=== PATIENT | female | born 2005 | race Caucasian/White ===

== ENCOUNTER 2023-10-21 17:46 | Emergency (ER) | payer MEDICAID ==
[~2023-10-21] VITALS: Ht 147.3 cm; Wt 52.0 kg
[2023-10-21] MEDS: ALBUTEROL (0.083%) 2.5MG/3ML NEB HHN SCH (19:41)
[2023-10-21] MEDS: IPRATROPIUM BROMIDE (0.02%) 0.5MG/2.5ML NEB HHN STA (19:41)
[2023-10-21 19:47] VITALS: PULSE 88; RESP 20; O2SAT 97
[2023-10-21] MEDS: PREDNISONE 20MG TABLET PO STA (19:54)
[2023-10-21 20:21] VITALS: PULSE 91; RESP 20; O2SAT 100
[2023-10-21 20:51] VITALS: PULSE 87; RESP 18; O2SAT 100
[2023-10-21 21:54] VITALS: BP 127/78; PULSE 98; RESP 18; TEMP 98.6
[2023-10-21] MEDS ORDERED: ALBU6.7H15 INH (22:10)
[2023-10-21] MEDS ORDERED: P50 MT (22:10)
[2023-10-21] MEDS ORDERED: ALBU2.5V13 NEB (22:10)
== END 2023-10-21 22:15 | disposition home or self-care (01) ==
LOC: ER 17:46
DX: J45.901 Unspecified asthma with (acute) exacerbation (principal)
CPT/HCPCS: 81025; 71045; 94640; 93005; 99285; J7512; Z7610 ×3

== ENCOUNTER 2024-02-18 10:44 | Emergency (ER) | payer MEDICAID, MEDICARE ==
[~2024-02-18] VITALS: Ht 149.9 cm; Wt 55.0 kg
[~2024-02-18 10:44] MED LIST: ALBU2.5V13 NEB; ALBU6.7H15 INH; P50 MT
[2024-02-18 10:59] VITALS: O2SAT 100
[2024-02-18] MEDS: IBUPROFEN 600MG TABLET PO ONE (11:39)
[2024-02-18] MEDS: LIDOCAINE 5% PATCH TOP SCH (11:41)
[2024-02-18 12:03] LABS: CLARITY URINE CLOUDY (CLEAR); COLOR URINE YELLOW (YELLOW); GLUCOSE URINE NEGATIVE (NEGATIVE); KETONES URINE NEGATIVE (NEGATIVE); LEUKOCYTE ESTERASE URINE 1+ (NEGATIVE); NITRITE URINE NEGATIVE (NEGATIVE); OCCULT BLOOD URINE NEGATIVE (NEGATIVE); PH URINE 5.5 (4.5-8.0); PROTEIN URINE NEGATIVE (NEGATIVE); SPECIFIC GRAVITY URINE 1.027 (1.005-1.030); UROBILINOGEN URINE 0.2 E.U./dL (0.2-1.0)
[2024-02-18 12:33] LABS: MUCUS URINE 2+ /lpf (< = 2+); SQUAMOUS EPITHELIAL CELL URINE 2+ /lpf (RARE/1+)
[2024-02-18 12:45] LABS: BACTERIA URINE 3+; RBC URINE 0-2 /hpf (0-2)
[2024-02-18] MEDS ORDERED: LIDO700A15 TP (13:09)
[2024-02-18] MEDS ORDERED: NAPR220C61 MT (13:09)
[2024-02-18] MEDS ORDERED: NITR-87 MT (13:09)
[2024-02-18 13:36] VITALS: BP 118/63; PULSE 74; RESP 16; TEMP 98.9
== END 2024-02-18 13:37 | disposition home or self-care (01) ==
LOC: ER 10:44
DX: M54.50 Low back pain, unspecified (principal); N39.0 Urinary tract infection, site not specified; W01.0XXA Fall on same level from slipping, tripping and stumbling without subsequent striking against object, initial encounter; Y93.89 Activity, other specified; Y92.89 Other specified places as the place of occurrence of the external cause; Y99.8 Other external cause status
CPT/HCPCS: 81003; 81025; 99283

== ENCOUNTER 2024-03-10 16:45 | Emergency (ER) | payer MEDICARE ==
[~2024-03-10] VITALS: Ht 147.3 cm; Wt 56.7 kg
[~2024-03-10 16:45] MED LIST changes: +LIDO700A15 TP; +NAPR220C61 MT; +NITR-87 MT
[2024-03-10 16:50] VITALS: O2SAT 96
[2024-03-10 17:36] LABS: BASOPHILS % 0.3 % (0.0-2.0); EOSINOPHILS % 4.5 % (0.0-5.0); HEMATOCRIT. 40.9 % (36.0-48.0); HEMOGLOBIN. 13.8 g/dL (12.0-16.0); MEAN CORPUSCULAR HEMOGLOBIN 32.3 pg (28.0-32.0); MEAN CORPUSCULAR HGB CONC 33.8 g/dL (31.0-37.0); MEAN CORPUSCULAR VOLUME 95.7 fL (81.0-99.0); MEAN PLATELET VOLUME 8.7 fl (7.4-10.4); NEUTROPHILS % 61.2 % (40.0-76.0); PLATELET 259 x1000/uL (130-400); RED BLOOD CELL COUNT 4.27 mill/uL (4.2-5.4); RED CELL DISTRIBUTION WIDTH 12.9 % (11.6-14.6); WHITE BLOOD COUNT 10.8 x1000/uL (4.5-11.0)
[2024-03-10 17:38] LABS: CARBON DIOXIDE 24 mEq/L (21-32); CHLORIDE 107 mEq/L (98-107); POTASSIUM 3.7 mEq/L (3.5-5.1); SODIUM 139 mEq/L (136-145)
[2024-03-10 17:39] LABS: CALCIUM 9.7 mg/dL (8.7-10.4)
[2024-03-10 17:41] LABS: HCG SCREEN POSITIVE
[2024-03-10 17:44] LABS: CREATININE 0.6 mg/dL (0.6-1.0); GLUCOSE 95 mg/dL (70-105)
[2024-03-10] MEDS ORDERED: ONDANSETRON 4MG ODT PO ONE (17:45)
[2024-03-10 17:46] LABS: ALANINE AMINOTRANSFERASE 16 IU/L (10-49); ALBUMIN 4.7 g/dL (3.2-4.8); ASPARTATE AMINOTRANSFERASE 20 IU/L (<34); BILIRUBIN DIRECT 0.1 mg/dL (<=3.0); BILIRUBIN TOTAL 0.4 mg/dL (0.1-1.0); PROTEIN TOTAL 6.8 g/dL (6.0-8.3); UREA NITROGEN BLOOD < 5 mg/dL (9-23)
[2024-03-10 17:58] LABS: CLARITY URINE CLEAR (CLEAR); COLOR URINE YELLOW (YELLOW); GLUCOSE URINE NEGATIVE (NEGATIVE); KETONES URINE NEGATIVE (NEGATIVE); LEUKOCYTE ESTERASE URINE TRACE (NEGATIVE); NITRITE URINE NEGATIVE (NEGATIVE); OCCULT BLOOD URINE NEGATIVE (NEGATIVE); PH URINE 7.5 (4.5-8.0); PROTEIN URINE NEGATIVE (NEGATIVE)
[2024-03-10] MEDS: ACETAMINOPHEN 325MG TABLET PO ONE (18:13)
[2024-03-10] MEDS: METOCLOPRAMIDE HCL 10MG TABLET PO ONE (18:13)
[2024-03-10 18:16] LABS: BACTERIA URINE 1+; RBC URINE 0-2 /hpf (0-2); SQUAMOUS EPITHELIAL CELL URINE 1+ /lpf (RARE/1+)
[2024-03-10 21:48] VITALS: BP 127/81; PULSE 70; RESP 20; TEMP 98
== END 2024-03-10 21:50 | disposition home or self-care (01) ==
LOC: ER 16:45
DX: O26.891 Other specified pregnancy related conditions, first trimester (principal); R10.9 Unspecified abdominal pain; Z3A.01 Less than 8 weeks gestation of pregnancy; Z79.899 Other long term (current) drug therapy
CPT/HCPCS: 99284; 80076; 80048; 81003; 81025; 84703; 84702; 83690; 85025; 36415; 76817; 76801; 76857; J8597

== ENCOUNTER 2024-05-30 20:09 | Inpatient (IN) | payer MEDICAID, MEDICARE ==
[~2024-05-30] VITALS: Ht 160 cm; Wt 55.8 kg
[2024-05-30] MEDS: METHYLPREDNISOLONE SOD SUCC 125MG/2ML (ACT-O-VIAL) IV STA (21:40)
[2024-05-30 21:50] LABS: HEMATOCRIT. 37.2 % (36.0-48.0); MEAN CORPUSCULAR HEMOGLOBIN 33.7 pg (28.0-32.0); MEAN CORPUSCULAR HGB CONC 34.8 g/dL (31.0-37.0); MEAN CORPUSCULAR VOLUME 96.6 fL (81.0-99.0); MEAN PLATELET VOLUME 10.2 fl (7.4-10.4); PLATELET 209 x1000/uL (130-400); RED BLOOD CELL COUNT 3.85 mill/uL (4.2-5.4); RED CELL DISTRIBUTION WIDTH 13.7 % (11.6-14.6); WHITE BLOOD COUNT 16.7 x1000/uL (4.5-11.0)
[2024-05-30 21:57] LABS: DIFFERENTIAL COMMENT 1
[2024-05-30 21:58] LABS: CHLORIDE 105 mEq/L (98-107); POTASSIUM 4.5 mEq/L (3.5-5.1); SODIUM 135 mEq/L (136-145)
[2024-05-30 21:59] LABS: CARBON DIOXIDE 20 mEq/L (21-32)
[2024-05-30 22:00] LABS: CALCIUM 9.4 mg/dL (8.7-10.4)
[2024-05-30] MEDS: IPRATROPIUM BROMIDE (0.02%) 0.5MG/2.5ML NEB HHN STA (22:02)
[2024-05-30 22:04] VITALS: PULSE 122; RESP 19; O2SAT 99
[2024-05-30 22:04] LABS: CREATININE 0.5 mg/dL (0.6-1.0); GLUCOSE 104 mg/dL (70-105)
[2024-05-30] MEDS: ALBUTEROL (0.083%) 2.5MG/3ML NEB HHN SCH (22:04)
[2024-05-30 22:05] LABS: UREA NITROGEN BLOOD < 5 mg/dL (9-23)
[2024-05-30 22:39] VITALS: PULSE 130; RESP 20; O2SAT 99
[2024-05-30 23:01] LABS: PLATELET ESTIMATE NORMAL
[2024-05-30] MEDS: AZITHROMYCIN 500MG/250ML 250 ML IV ONE (23:30)
[2024-05-30] MEDS: SODIUM CHLORIDE 0.9% 1,000 ML IV ONE (23:45)
[2024-05-30] MEDS: CEFTRIAXONE 1GM/50ML 50 ML IV ONE (23:45)
[2024-05-31 00:15] LABS: CLARITY URINE CLEAR (CLEAR); COLOR URINE YELLOW (YELLOW); GLUCOSE URINE TRACE (NEGATIVE); KETONES URINE 3+ (NEGATIVE); LEUKOCYTE ESTERASE URINE 2+ (NEGATIVE); NITRITE URINE NEGATIVE (NEGATIVE); OCCULT BLOOD URINE NEGATIVE (NEGATIVE); PH URINE 5.5 (4.5-8.0); PROTEIN URINE NEGATIVE (NEGATIVE); UROBILINOGEN URINE 0.2 E.U./dL (0.2-1.0)
[2024-05-31] MEDS: MAGNESIUM 2 G PREMIX 50 ML IV ONE (00:32)
[2024-05-31 00:47] VITALS: PULSE 130; RESP 20; O2SAT 95
[2024-05-31] MEDS: ALBUTEROL (0.083%) 2.5MG/3ML NEB HHN ONE (00:47)
[2024-05-31 01:07] LABS: LACTIC ACID 3.1 mmol/L (0.4-2.0)
[2024-05-31 02:24] LABS: SQUAMOUS EPITHELIAL CELL URINE 1+ /lpf (RARE/1+)
[2024-05-31 02:32] LABS: RBC URINE 0-2 /hpf (0-2)
[2024-05-31 02:33] LABS: BACTERIA URINE 1+
[2024-05-31] MEDS: SODIUM CHLORIDE 0.9% 1,000 ML IV ONE (10:40)
[2024-05-31] MEDS ORDERED: ACETAMINOPHEN 325MG TABLET PO PRN (12:45)
[2024-05-31] MEDS ORDERED: ONDANSETRON HCL 4MG/2ML INJ IV PRN (12:45)
[2024-05-31] MEDS: BUDESONIDE 0.5MG/2ML NEB HHN SCH (13:37)
[2024-05-31] MEDS: IPRATROPIUM BROMIDE (0.02%) 0.5MG/2.5ML NEB HHN SCH (13:37)
[2024-05-31 13:42] VITALS: PULSE 100; RESP 20
[2024-05-31 13:57] LABS: BG BASE EXCESS -6.4 mmol/L (-2.0-3.0); BG CARBOXYHEMOGLOBIN 0.3 % (0.5-1.5); BG DEOXYHEMOGLOBIN 2.1 % (0.0-5.0); BG FRACTION INSPIRED OXYGEN 28; BG HCO3 ACT 15.9 mmol/L (21.0-28.0); BG METHEMOGLOBIN 0.3 % (0.5-1.5); BG OXYGEN SATURATION 97.9 % (94.0-98.0); BG OXYHEMOGLOBIN 97.3 % (94.0-98.0); BG PCO2 23.5 mmHg (32.0-45.0); BG PH 7.449 (7.350-7.450); BG PO2 100.1 mmHg (83.0-108.0); BG SAMPLE SITE RIGHT RADIAL; BG TOTAL HEMOGLOBIN 11.9 g/dL (12.0-16.0); BG VENT MODE NASAL CANNULA
[2024-05-31] MEDS: METHYLPREDNISOLONE SOD SUCC 40MG/ML (ACT-O-VIAL) IV SCH (14:17)
[2024-05-31 17:09] VITALS: PULSE 107; RESP 20
[2024-05-31 18:33] LABS: CREATINE KINASE MB FRACTION 2.9 ng/mL (0.5-3.6)
[2024-05-31 18:34] LABS: CREATINE KINASE 50 IU/L (34-145)
[2024-05-31] MEDS: SODIUM CHLORIDE 0.9% 1,000 ML IV SCH (18:44)
[2024-05-31 19:23] LABS: TROPONIN I HIGH SENSITIVITY < 4 ng/L (3.0-34)
[2024-05-31 20:00] VITALS: BP 114/61; PULSE 109; RESP 18; TEMP 36.72516; O2SAT 100
[2024-05-31 20:22] VITALS: PULSE 86; RESP 18
[2024-05-31] MEDS ORDERED: AZITHROMYCIN 500MG/250ML 250 ML IV SCH (21:00)
[2024-05-31] MEDS: AZITHROMYCIN 500 MG TABLET PO SCH (21:32)
[2024-05-31 23:51] VITALS: BP 101/56; PULSE 76; RESP 19; TEMP 36.418
[2024-06-01] VITALS (11 sets, daily range): BP systolic 92–119; BP diastolic 48–86; PULSE 74–102; RESP 16–20; TEMP 36.114–36.6696; O2SAT 94–100
[2024-06-01] MEDS: CEFTRIAXONE 1GM/50ML 50 ML IV SCH (00:39)
[2024-06-01 01:14] LABS: CREATINE KINASE 39 IU/L (34-145); CREATINE KINASE MB FRACTION 2.1 ng/mL (0.5-3.6)
[2024-06-01 01:44] LABS: TROPONIN I HIGH SENSITIVITY < 4 ng/L (3.0-34)
[2024-06-01 07:12] LABS: CARBON DIOXIDE 19 mEq/L (21-32); CHLORIDE 111 mEq/L (98-107); POTASSIUM 3.7 mEq/L (3.5-5.1); SODIUM 138 mEq/L (136-145)
[2024-06-01 07:13] LABS: CALCIUM 9.3 mg/dL (8.7-10.4)
[2024-06-01 07:17] LABS: CREATININE 0.5 mg/dL (0.6-1.0)
[2024-06-01 07:18] LABS: GLUCOSE 132 mg/dL (70-105); UREA NITROGEN BLOOD 6 mg/dL (9-23)
[2024-06-01 08:02] LABS: HEMATOCRIT. 35.1 % (36.0-48.0); HEMOGLOBIN. 11.6 g/dL (12.0-16.0); MEAN CORPUSCULAR HEMOGLOBIN 32.8 pg (28.0-32.0); MEAN CORPUSCULAR VOLUME 99.4 fL (81.0-99.0); MEAN PLATELET VOLUME 9.7 fl (7.4-10.4); PLATELET 186 x1000/uL (130-400); RED BLOOD CELL COUNT 3.53 mill/uL (4.2-5.4); RED CELL DISTRIBUTION WIDTH 13.8 % (11.6-14.6)
[2024-06-01 09:16] LABS: DIFFERENTIAL COMMENT 1
[2024-06-01 14:18] LABS: PLATELET ESTIMATE NORMAL
[2024-06-02] VITALS (10 sets, daily range): BP systolic 110–118; BP diastolic 60–65; PULSE 69–93; RESP 18–22; TEMP 36.05844–36.44736; O2SAT 96–99
[2024-06-02] MEDS ORDERED: BECL10.62 INH (12:48)
[2024-06-02] MEDS ORDERED: AZIT250T12 MT (12:48)
[2024-06-02] MEDS ORDERED: ALBU18HF2 IH (12:48)
[2024-06-02] MEDS ORDERED: METH4TAB95 MT (12:48)
== END 2024-06-02 19:00 | disposition home or self-care (01) | DRG 566 ==
LOC: ER 20:09 → 5WST 05-31 01:10 → 7WST 05-31 22:02
PROVIDERS: ADMIT Internal Medicine; ATTEND Internal Medicine
DX: O99.512 Diseases of the respiratory system complicating pregnancy, second trimester (principal); J96.90 Respiratory failure, unspecified, unspecified whether with hypoxia or hypercapnia; E86.0 Dehydration; O99.282 Endocrine, nutritional and metabolic diseases complicating pregnancy, second trimester; Z3A.17 17 weeks gestation of pregnancy; R00.0 Tachycardia, unspecified; O99.891 Other specified diseases and conditions complicating pregnancy; J45.901 Unspecified asthma with (acute) exacerbation
CPT/HCPCS: 36415; 36600; 71045; 76805; 76815; 80048; 81003; 82375; 82550; 82553; 82805; 83605; 84145; 84484; 84702; 85025; 85379; 87426; 87804; 93005; 93970; 94640; 99291; C1893; J0456; J0696; J2919; J2920; J3475; J7030; J7626

== ENCOUNTER 2025-03-08 22:21 | Emergency (ER) | payer MEDICAID ==
[~2025-03-08] VITALS: Ht 144.8 cm; Wt 54.0 kg
[~2025-03-08 22:21] MED LIST changes: +ALBU18HF2 IH; +AZIT250T12 MT; +BECL10.62 INH; -LIDO700A15 TP; +METH4TAB95 MT; -NAPR220C61 MT; -NITR-87 MT; -P50 MT
[2025-03-08 22:31] VITALS: O2SAT 99
[2025-03-08 23:47] LABS: CLARITY URINE CLEAR (CLEAR); COLOR URINE YELLOW (YELLOW); GLUCOSE URINE NEGATIVE (NEGATIVE); KETONES URINE NEGATIVE (NEGATIVE); LEUKOCYTE ESTERASE URINE TRACE (NEGATIVE); NITRITE URINE NEGATIVE (NEGATIVE); OCCULT BLOOD URINE NEGATIVE (NEGATIVE); PH URINE 5.5 (4.5-8.0); PROTEIN URINE NEGATIVE (NEGATIVE); SPECIFIC GRAVITY URINE 1.018 (1.005-1.030); UROBILINOGEN URINE 0.2 E.U./dL (0.2-1.0)
[2025-03-08 23:59] LABS: BASOPHILS % 0.7 % (0.0-2.0); EOSINOPHILS % 6.6 % (0.0-5.0); HEMATOCRIT. 41.3 % (36.0-48.0); HEMOGLOBIN. 13.9 g/dL (12.0-16.0); LYMPHOCYTES % 36.7 % (20.0-50.0); MEAN PLATELET VOLUME 9.0 fl (7.4-10.4); MONOCYTES % 8.4 % (2.0-8.0); NEUTROPHILS % 47.6 % (40.0-76.0); PLATELET 251 x1000/uL (130-400); RED BLOOD CELL COUNT 4.51 mill/uL (4.2-5.4); RED CELL DISTRIBUTION WIDTH 14.7 % (11.6-14.6)
[2025-03-09 00:19] LABS: BACTERIA URINE TRACE; RBC URINE NONE SEEN /hpf (0-2); SQUAMOUS EPITHELIAL CELL URINE 1+ /lpf (RARE/1+)
[2025-03-09 00:19] LABS: CREATININE 0.7 mg/dL (0.6-1.0); UREA NITROGEN BLOOD 16 mg/dL (9-23)
[2025-03-09] MEDS: KETOROLAC 30MG/ML VIAL IM ONE (00:22)
[2025-03-09] MEDS ORDERED: IBUP-2029 MT (01:24)
[2025-03-09] MEDS ORDERED: SULF1TAB48 MT (01:24)
[2025-03-09 01:30] VITALS: BP 121/70; PULSE 60; RESP 19; TEMP 36.6; O2SAT 100
== END 2025-03-09 01:32 | disposition home or self-care (01) ==
LOC: ER 22:21
DX: R10.2 Pelvic and perineal pain (principal); R30.0 Dysuria; F19.90 Other psychoactive substance use, unspecified, uncomplicated; Z79.899 Other long term (current) drug therapy
CPT/HCPCS: 80048; 81003; 81025; 85025; 36415; 99285; 76830; 76856; 96372; J1885; Z7610

== ENCOUNTER 2025-07-17 13:21 | Emergency (ER) | payer MEDICAID ==
[~2025-07-17] VITALS: Ht 160 cm; Wt 60.0 kg
[~2025-07-17 13:21] MED LIST changes: +IBUP-1455 MT; +SULF1TAB48 MT
[2025-07-17 13:29] VITALS: O2SAT 97
[2025-07-17 14:19] LABS: BASOPHILS % 0.5 % (0.0-2.0); EOSINOPHILS % 5.2 % (0.0-5.0); HEMATOCRIT. 40.8 % (36.0-48.0); HEMOGLOBIN. 13.7 g/dL (12.0-16.0); LYMPHOCYTES % 20.6 % (20.0-50.0); MEAN PLATELET VOLUME 9.8 fl (7.4-10.4); MONOCYTES % 7.5 % (2.0-8.0); NEUTROPHILS % 66.2 % (40.0-76.0); PLATELET 264 x1000/uL (130-400); RED BLOOD CELL COUNT 4.36 mill/uL (4.2-5.4); RED CELL DISTRIBUTION WIDTH 13.7 % (11.6-14.6)
[2025-07-17 14:28] LABS: CLARITY URINE CLEAR (CLEAR); COLOR URINE YELLOW (YELLOW); GLUCOSE URINE NEGATIVE (NEGATIVE); KETONES URINE NEGATIVE (NEGATIVE); LEUKOCYTE ESTERASE URINE TRACE (NEGATIVE); NITRITE URINE NEGATIVE (NEGATIVE); OCCULT BLOOD URINE NEGATIVE (NEGATIVE); PH URINE 7.5 (4.5-8.0); PROTEIN URINE NEGATIVE (NEGATIVE); SPECIFIC GRAVITY URINE 1.024 (1.005-1.030); UROBILINOGEN URINE 1.0 E.U./dL (0.2-1.0)
[2025-07-17 14:35] LABS: CREATININE 0.6 mg/dL (0.6-1.0); UREA NITROGEN BLOOD 7 mg/dL (9-23)
[2025-07-17] MEDS: ACETAMINOPHEN 325MG TABLET PO ONE (14:45)
[2025-07-17 14:48] LABS: BACTERIA URINE 1+; SQUAMOUS EPITHELIAL CELL URINE 3+ /lpf (RARE/1+)
[2025-07-17 14:49] LABS: RBC URINE 0-2 /hpf (0-2); WBC URINE 0-2 /hpf (0-2)
[2025-07-17] MEDS ORDERED: CEPH500C2 MT (16:13)
[2025-07-17 16:23] VITALS: BP 102/50; PULSE 92; RESP 12; TEMP 36.8; O2SAT 98
== END 2025-07-17 16:26 | disposition home or self-care (01) ==
LOC: ER 13:21
DX: O26.891 Other specified pregnancy related conditions, first trimester (principal); O23.01 Infections of kidney in pregnancy, first trimester; N10 Acute pyelonephritis; R10.20 Pelvic and perineal pain unspecified side; Z79.51 Long term (current) use of inhaled steroids; Z79.899 Other long term (current) drug therapy; Z3A.08 8 weeks gestation of pregnancy
CPT/HCPCS: 36415; 76801; 80048; 81003; 81025; 84702; 85025; 99284

== ENCOUNTER 2025-07-21 22:36 | Emergency (ER) | payer MEDICAID ==
[~2025-07-21] VITALS: Ht 147.3 cm; Wt 57.0 kg
[~2025-07-21 22:36] MED LIST changes: +CEPH500C2 MT
[2025-07-21 23:01] VITALS: O2SAT 99
[2025-07-22 00:15] LABS: BASOPHILS % 0.2 % (0.0-2.0); EOSINOPHILS % 4.8 % (0.0-5.0); HEMATOCRIT. 38.7 % (36.0-48.0); HEMOGLOBIN. 12.9 g/dL (12.0-16.0); LYMPHOCYTES % 28.3 % (20.0-50.0); MEAN PLATELET VOLUME 9.3 fl (7.4-10.4); MONOCYTES % 8.3 % (2.0-8.0); NEUTROPHILS % 58.4 % (40.0-76.0); PLATELET 244 x1000/uL (130-400); RED BLOOD CELL COUNT 4.12 mill/uL (4.2-5.4); RED CELL DISTRIBUTION WIDTH 13.7 % (11.6-14.6)
[2025-07-22 00:32] LABS: CREATININE 0.5 mg/dL (0.6-1.0); UREA NITROGEN BLOOD 7 mg/dL (9-23)
[2025-07-22 00:33] LABS: PROTEIN TOTAL 6.6 g/dL (6.0-8.3)
[2025-07-22 00:34] LABS: ASPARTATE AMINOTRANSFERASE 15 IU/L (<34); BILIRUBIN DIRECT < 0.1 mg/dL (<=3.0); BILIRUBIN TOTAL 0.4 mg/dL (0.1-1.0)
[2025-07-22 00:35] LABS: HCG SCREEN POSITIVE
[2025-07-22 00:37] LABS: B-HCG QUANTITATIVE > 1000 mIU/mL (<6)
[2025-07-22] MEDS ORDERED: PREN-183 MT (00:50)
[2025-07-22] MEDS: LIDOCAINE 5% PATCH TOP SCH (01:06)
[2025-07-22] MEDS: ACETAMINOPHEN 325MG TABLET PO ONE (01:06)
[2025-07-22] MEDS: MAGNESIUM OXIDE 400MG TABLET PO STA (01:07)
[2025-07-22] MEDS ORDERED: CLOT45CR62 VG (01:07)
[2025-07-22 01:54] VITALS: BP 109/63; PULSE 90; RESP 11; TEMP 36.7; O2SAT 99
== END 2025-07-22 01:53 | disposition home or self-care (01) ==
LOC: ER 22:36
DX: O26.891 Other specified pregnancy related conditions, first trimester (principal); M79.18 Myalgia, other site; N89.8 Other specified noninflammatory disorders of vagina; Z79.51 Long term (current) use of inhaled steroids; Z79.899 Other long term (current) drug therapy; Z3A.09 9 weeks gestation of pregnancy
CPT/HCPCS: 36415; 76705; 80048; 80076; 83735; 84702; 84703; 85025; 99284